=== PATIENT | female | born 1965 | race African-American/Black ===

== ENCOUNTER 2018-08-08 20:00 | Emergency (ER) | payer OTHER ==
--- OUTSIDE RECORDS SUMMARY | 2018-08-08 20:03 | XMS REPORT | Continuity of Care Document ---
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 06/26/2018 hyper [facility] p>1</sup> Medications Medication Details Route Status Patient Ordering Order Source Instructions Provider Date Saline Lock 10 mL, Soln, Inactive [facility] Flush IV Push, As 019 Indicated PRN for flush, first dose 06/24/18 14:09:00 CDT LR 1,000 mL 1,000 mL, IV, Inactive [facility] 75 mL/hr, 019 start date 06/24/18 14:09:00 CDT Misc 500 mL, Inactive [facility] Medication Soln-IV, IV, 019 Once, first dose 06/24/18 13:59:00 CDT, stop date 06/24/18 13:59:00 CDT lidocaine 5 mL, Inactive [facility] Injection, 019 IV, Once, first dose 06/24/18 13:43:00 CDT, stop date 06/24/18 13:43:00 CDT propofol 200 mg=20 mL, Inactive [facility] Emulsion, IV, 019 Once, first dose 06/24/18 13:43:00 CDT, stop date 06/24/18 13:43:00 CDT Lidocaine 2% 0.2 mL, Inactive [facility] 0.2 mL IV Injection, 019 Start Subcutaneous, [[place]] Once PRN for other (see comment), first dose 06/24/18 12:28:00 CDT LR 1,000 mL 1,000 mL, IV, Inactive [facility] 30 mL/hr, 019 start date 06/24/18 12:28:00 CDT Aspirin 81 MG 81 mg=1 tabs, Active [facility] Enteric Oral, Daily, 019 Coated Tablet heart health [Aspir-Low] sertraline 50 50 mg=1 tabs, Active [facility] mg oral Oral, Daily, 019 tablet depression Allergies, Adverse Reactions, Alerts Substance Category Reaction Severity Reaction Status Date Comments Source type Reported No Known Assertion Drug [facility] Medication allergy Allergies Immunizations Immunization Date Given Site Status Last Updated Comments Source Results Order Results Value Reference Date Interpretation Comments Source Name Range Vital Signs Vital Sign Value Date Comments Source Respitory Rate 16 06/24/2018 [facility] Systolic (mm Hg) 125 06/24/2018 [facility] Diastolic (mm Hg) 75 06/24/2018 [facility] Peripheral Pulse Rate 75 06/24/2018 [facility] Heart Rate 74 06/24/2018 [facility] Respitory Rate 14 06/24/2018 [facility] Systolic (mm Hg) 134 06/24/2018 [facility] Diastolic (mm Hg) 85 06/24/2018 [facility] Systolic (mm Hg) 137 06/24/2018 [facility] Diastolic (mm Hg) 86 06/24/2018 [facility] Respitory Rate 16 06/24/2018 [facility] Heart Rate 79 06/24/2018 [facility] Temperature Oral (F) 36.5 [place] 06/24/2018 [facility] Heart Rate 88 06/24/2018 [facility] Peripheral Pulse Rate 75 06/24/2018 [facility] Temperature Oral (F) 36.6 [place] 06/24/2018 [facility] Height 160.02 cm 06/24/2018 [facility] Weight Measured 77.1 06/24/2018 [facility] Weight Measured 77.11 06/20/2018 [facility] Height 160.02 cm 06/20/2018 [facility] Encounters Location Location Encounter Encounter Reason Attending ADM DC Status Source Details Type Number For Provider Date Date Visit [facility] Outpatient [id number] Cachorro 06/24 06/24 Active [facility] Outpatient [id number] Cachorro 06/24 06/24 [facility] Preadmit [id number] Fabricio Active [facility] Procedures Procedure Code Date Perfomer Comments Source COLONOSCOPY 06/24/2018 auto-populated [facility] FLEXIBLE; from documented DIAGNOSTIC; INCL. surgical case COLLECTION OF SPECIMENS 39527 (N/A)<sup>1</sup> Gastric [id number] 03/26/2009 spleen removed [facility] bypass<sup>2</sup> Hysterectomy [id number] 03/26/2008 [facility]
--- OUTSIDE RECORDS SUMMARY | 2018-08-08 20:03 | XMS REPORT | Summary of Care ---
:[address] [facility] Address [address] [place] [address] Encounter [facility] [id number] Date(s): 06/24/18 - 06/24/[address] [facility] [address] [place] [address]- Encounter Diagnosis Encounter for screening for malignant neoplasm of colon (Discharge Diagnosis) - 06/24/18 Discharge Disposition: Discharged to Home or Self Care Attending Physician: Cachorro Hamilton MD Admitting Physician: Cachorro Hamilton MD Vital Signs Most recent to oldest [Reference 1 2 3 Range]: Temperature Oral [35.8-37.3 36.6 DegC DegC] (06/24/18 12:25 PM) Temperature Temporal Artery 36.5 DegC [36.3-37.8 DegC] (06/24/18 2:00 PM) Temperature Temporal Fahrenheit 97.7 (06/24/18 2:00 PM) Peripheral Pulse Rate [55-105 75 bpm 75 bpm bpm] (06/24/18 2:34 PM) (06/24/18 12:25 PM) Heart Rate Monitored [60-100 74 bpm 79 bpm 88 bpm bpm] (06/24/18 2:20 PM) (06/24/18 2:10 PM) (06/24/18 2:00 PM) Respiratory Rate [12-20] 16 14 16 (06/24/18 2:34 PM) (06/24/18 2:20 PM) (06/24/18 2:10 PM) SpO2 [90-100 %] 100 % 99 % 100 % (06/24/18 2:34 PM) (06/24/18 2:20 PM) (06/24/18 2:10 PM) Blood Pressure [110-120/65-85 125/75 mmHg 134/85 mmHg 137/86 mmHg mmHg] *HI* *HI* *HI* (06/24/18 2:34 PM) (06/24/18 2:20 PM) (06/24/18 2:10 PM) Mean Arterial Pressure, Cuff 101.3 mmHg 103 mmHg 88.7 mmHg (06/24/18 2:20 PM) (06/24/18 2:10 PM) (06/24/18 2:00 PM) Activity Level - SpO2 At rest (06/24/18 2:00 PM) Height 160.02 cm 160.02 cm (06/24/18 12:25 PM) (06/20/18 2:11 PM) Height/Length Dosing 160.02 cm 160.02 cm (06/24/18 12:25 PM) (06/20/18 2:11 PM) Height Inches 63 in 63 in (06/24/18 12:25 PM) (06/20/18 2:11 PM) Weight 77.1 kg 77.11 kg (06/24/18 12:25 PM) (06/20/18 2:11 PM) Weight Dosing 77.1 kg 77.11 kg (06/24/18 12:25 PM) (06/20/18 2:11 PM) Weight Pounds 170 lb 170 lb (06/24/18 12:25 PM) (06/20/18 2:11 PM) Body Mass Index 30.11 kg/m2 30.11 kg/m2 (06/24/18 12:25 PM) (06/20/18 2:11 PM) Problem List Condition Effective Dates Status Health Status Informant Colon cancer screening(Confirmed) Active Depression(Confirmed) Active Parathyroid(Confirmed)1 Active 1hyper Allergies, Adverse Reactions, Alerts No Known Medication Allergies Medications Aspir-Low 81 mg oral delayed release tablet 81 mg=1 tabs, Oral, Daily, heart health Start Date: 06/20/18 Stop Date: 07/04/18 Status: Orderedlidocaine 5 mL, Injection, IV, Once, first dose 06/24/18 13:43:00 CDT, stop date 06/24/18 13:43:00 CDT Start Date: 06/24/18 Stop Date: 06/24/18 Status: CompletedLidocaine 2% 0.2 mL IV Start [[place]] 0.2 mL, Injection, Subcutaneous, Once PRN for other (see comment), first dose 12:28:00 CDT Start Date: 06/24/18 Stop Date: 06/24/18 Status: CompletedLR 1,000 mL 1,000 mL, IV, 30 mL/hr, start date 06/24/18 12:28:00 CDT Start Date: 06/24/18 Stop Date: 06/24/18 Status: DiscontinuedLR 1,000 mL 1,000 mL, IV, 75 mL/hr, start date 06/24/18 14:09:00 CDT Start Date: 06/24/18 Stop Date: 06/24/18 Status: DiscontinuedMisc Medication 500 mL, Soln-IV, IV, Once, first dose 06/24/18 13:59:00 CDT, stop date 06/24/18 13:59:00 CDT Start Date: 06/24/18 Stop Date: 06/24/18 Status: Completedpropofol 200 mg=20 mL, Emulsion, IV, Once, first dose 06/24/18 13:43:00 CDT, stop date 13:43:00 CDT Start Date: 06/24/18 Stop Date: 06/24/18 Status: CompletedSaline Lock Flush 10 mL, Soln, IV Push, As Indicated PRN for flush, first dose 06/24/18 14:09:00 CDT Start Date: 06/24/18 Stop Date: 06/24/18 Status: Discontinuedsertraline 50 mg oral tablet 50 mg=1 tabs, Oral, Daily, depression Start Date: 06/20/18 Stop Date: 07/04/18 Status: Ordered Results No data available for this section Immunizations No data available for this section Procedures Procedure Date Related Diagnosis Body Site Status COLONOSCOPY FLEXIBLE; DIAGNOSTIC; INCL. 06/24/18 Completed COLLECTION OF SPECIMENS 36596 (N/A)1 Gastric bypass2 03/26/09 Completed Hysterectomy 03/26/08 Completed 1auto-populated from documented surgical [id number] removed Social History Social History Type Response Assessment and Plan No data available for this section
--- OUTSIDE RECORDS SUMMARY | 2018-08-08 20:03 | XMS REPORT | Clinical Summary ---
:1965 Author Organization [facility] Address [address] [place] [address] Care Team Providers Name Role Phone Vignesh Christy MD Primary Care Provider Allergies No Known Allergies Medications Medication Sig Dispensed Refills Start Date End Date Status ferrous sulfate 324 TAKE 1 TABLET 90 tablet 0 07/08/2015 Active mg (65 mg iron) BY MOUTH tablet,delayed EVERY DAY FOR release (DR/EC) EC 90 DAYS tablet cyanocobalamin 1000 Take 1,000 0 Active MCG tablet mcg by mouth daily. PNV cmb#95-ferrous Take 1 tablet 0 Active fumarate-FA by mouth () 28 mg daily. iron- 800 mcg tablet cholecalciferol, Take 2,000 0 Active vitamin D3, Units by (cholecalciferol, mouth daily. vitamin D3,) 2,000 unit capsule capsule folic acid (FOLVITE) Take 1 mg by 0 Active 1 MG tablet mouth daily. sertraline (ZOLOFT) Take 25 mg by 0 05/02/2018 Active 25 MG tablet mouth daily. multivitamin Take 1 tablet 0 04/02/2018 Discontinued (THERAGRAN) tablet by mouth daily. azithromycin Take 2 6 tablet 0 07/22/2015 04/02/2018 Discontinued (ZITHROMAX Z-SHERLEY) tablets the 250 MG tablet first day, then 1 tablet daily for 4 days. aspirin 81 mg Chew 1 tablet 30 tablet 0 04/02/2018 05/02/2018 chewable tablet (81 mg total) daily for 30 days. Active Problems Problem Noted Date Facial numbness 04/02/2018 Depression 07/22/2015 Mediastinal mass 07/22/2015 Acute sinusitis, unspecified 07/22/2015 Dizziness 07/22/2015 Mediastinal mass 07/22/2015 Encounters Date Type Specialty Care Team Description 07/09/2018 [facility] Radiology Jeny, Encounter Fabricio Suero MD 07/09/2018 [facility] Radiology Jeny, Encounter Fabricio Suero MD 07/09/2018 [facility] Radiology Jeny, Hypercalcemia; Encounter Fbaricio Suero MD Hyperparathyroidism ([facility]) 06/21/2018 Transcribe Orders Access Jeny, Hypercalcemia (Primary Dx); Fabricio Suero MD Hyperparathyroidism ([facility]) 06/12/2018 [facility] Radiology Eric Barber Nontoxic multinodular goiter; Encounter MD Lex Hypercalcemia; Avitaminosis D; Osteomalacia 06/06/2018 Office Visit Neurology Cindy Dinero Sin Paresthesia (Primary Dx) ; DO Yamilka Copper deficiency 06/06/2018 Transcribe Orders Access Eric Barber Nontoxic multinodular goiter (Primary Dx); MD Lex Hypercalcemia; Avitaminosis D; Osteomalacia 05/27/2018 Telephone Neurology Rosette Cindy Sin [place], DO 05/27/2018 Orders Only Neurology Rosette Cindy Sin [place], DO 05/24/2018 Telephone Neurology Otilio Rodrigues MD 04/30/2018 Office Visit Neurology Keith Dineroisa Sin Paresthesia (Primary Dx) ; [place], Spasms of the hands or feet 04/27/2018 Telephone Neurology Otilio Rodrigues MD 04/08/2018 Telephone Neurology Otilio Rodrigues MD 04/05/2018 Telephone Neurology Otilio Rodrigues MD 04/01/2018 Emergency General Internal Kierra, Facial numbness (Primary Dx); - Medicine Greta Vargas, Left arm numbness; 04/02/2018 DO Depression, unspecified depression type; [place], Mediastinal mass MD Frieda after 08/07/2017 Family History Medical History Relation Name Comments Cancer Maternal Aunt breast Heart disease Mother [place] Seizures Mother Relation Name Status Comments Maternal Aunt Mother Social History Tobacco Use Types Packs/Day Years Used Date Never Smoker Alcohol Use Drinks/Week oz/Week Comments Yes occasional Sex Assigned at Date Recorded Not on file Job Start Date Occupation Industry Not on file Not on file Not on file Travel History Travel Start Travel End No recent travel history available. Last Filed Vital Signs Vital Sign Reading Time Taken Blood Pressure 126/84 06/06/2018 2:38 PM CDT Pulse 83 04/02/2018 11:10 AM [employer] Temperature 35.9 C (96.7 F) 04/02/2018 11:10 AM [employer] Respiratory Rate 18 04/02/2018 11:10 AM [employer] Oxygen Saturation 99% 04/02/2018 11:10 AM [employer] Inhaled Oxygen Concentration - - Weight 77.1 kg (170 lb) 06/06/2018 2:38 PM CDT Height 160 cm (5' 3") 06/06/2018 2:38 PM CDT Body Mass Index 30.11 06/06/2018 2:38 PM CDT Plan of Treatment Health Maintenance Due Date Last Done Comments CERVICAL CANCER SCREENING 11/03/1988 BREAST CANCER SCREENING 11/03/2017 05/07/2015 COLON CANCER SCREENING 11/03/2017 SHINGLES VACCINES (#1) 11/03/2017 INFLUENZA VACCINE 10/24/2018 Procedures Procedure Name Priority Date/Time Associated Diagnosis Comments NM PARATHYROID SCAN Routine 07/09/2018 4:00 Hypercalcemia Results for this PM CDT Hyperparathyroidism procedure are in (HCC) the results section. BONE DENSITY Routine 06/12/2018 3:45 Nontoxic Results for this PM CDT multinodular goiter procedure are in Hypercalcemia the results Avitaminosis D section. Osteomalacia ANGIOTENSIN CONVERTING Routine 04/30/2018 10:56 Paresthesia Results for this ENZYME AM [employer] procedure are in the results section. IONIZED CALCIUM Routine 04/30/2018 10:56 Paresthesia Results for this AM [employer] Spasms of the hands procedure are in or feet the results section. VIVIANA TITER Routine 04/02/2018 12:15 Results for this PM [employer] procedure are in the results section. COPPER LEVEL, SERUM Routine 04/02/2018 12:15 Results for this PM [employer] procedure are in the results section. PARATHYROID HORMONE Routine 04/02/2018 12:15 Results for this PM [employer] procedure are in the results section. VIVIANA Routine 04/02/2018 12:15 Results for this PM [employer] procedure are in the results section. SYPHILIS TREPONEMAL Routine 04/02/2018 12:15 Results for this IGG PM [employer] procedure are in the results section. RAPID HIV 1 & 2 Routine 04/02/2018 12:15 Results for this PM [employer] procedure are in the results section. HEMOGLOBIN A1C Routine 04/02/2018 12:15 Results for this PM [employer] procedure are in the results section. LIPID PANEL STAT 04/02/2018 12:15 Results for this PM [employer] procedure are in the results section. T4, FREE STAT 04/02/2018 12:15 Results for this PM [employer] procedure are in the results section. THYROID STIMULATING STAT 04/02/2018 12:15 Results for this HORMONE PM [employer] procedure are in the results section. VITAMIN B12 LEVEL STAT 04/02/2018 12:15 Results for this PM [employer] procedure are in the results section. VITAMIN B1 LEVEL, STAT 04/02/2018 12:15 Results for this WHOLE BLOOD PM [employer] procedure are in the results section. MRA NECK WO CONTRAST Routine 04/02/2018 9:28 Results for this AM [employer] procedure are in the results section. MRA [place] Routine 04/02/2018 9:26 Results for this AM [employer] procedure are in the results section. MRI BRAIN WO CONTRAST Routine 04/02/2018 9:26 Results for this AM [employer] procedure are in the results section. TROPONIN Timed 04/02/2018 6:05 Results for this AM [employer] procedure are in the results section. TROPONIN Routine 04/02/2018 3:20 Results for this AM [employer] procedure are in the results section. ECG 12-LEAD STAT 04/02/2018 12:40 Results for this AM [employer] procedure are in the results section. ESTIMATED GFR STAT 04/02/2018 12:38 Results for this AM [employer] procedure are in the results section. MAGNESIUM LEVEL STAT 04/02/2018 12:38 Results for this AM [employer] procedure are in the results section. PHOSPHORUS LEVEL STAT 04/02/2018 12:38 Results for this AM [employer] procedure are in the results section. B NATRIURETIC PEPTIDE STAT 04/02/2018 12:38 Results for this AM [employer] procedure are in the results section. TROPONIN STAT 04/02/2018 12:38 Results for this AM [employer] procedure are in the results section. LIPASE LEVEL STAT 04/02/2018 12:38 Results for this AM [employer] procedure are in the results section. COMPREHENSIVE STAT 04/02/2018 12:38 Results for this METABOLIC PANEL AM [employer] procedure are in the results section. PARTIAL THROMBOPLASTIN STAT 04/02/2018 12:38 Results for this TIME (PTT) AM [employer] procedure are in the results section. PROTHROMBIN TIME WITH STAT 04/02/2018 12:38 Results for this INR AM [employer] procedure are in the results section. HC COMPLETE BLD COUNT STAT 04/02/2018 12:38 Results for this W/AUTO DIFF AM [employer] procedure are in the results section. URINE CULTURE STAT 04/02/2018 12:38 Results for this AM [employer] procedure are in the results section. GRAM STAIN STAT 04/02/2018 12:38 Results for this AM [employer] procedure are in the results section. XR CHEST 2 VW STAT 04/02/2018 12:32 Results for this AM [employer] procedure are in the results section. URINALYSIS SCREEN AND STAT 04/02/2018 12:28 Results for this MICROSCOPY, WITH AM [employer] procedure are in REFLEX TO CULTURE the results section. CT HEAD WO CONTRAST STAT 04/02/2018 12:23 Results for this AM [employer] procedure are in the results section. ECG ED PRELIMINARY Routine 04/01/2018 11:31 Results for this INTERPRETATION PM [employer] procedure are in the results section. after 08/07/2017 Results NM Parathyroid Scan (07/09/2018 4:00 PM CDT) Narrative Performed At PROCEDURE: NM PARATHYROID SCAN [facility] INDICATION: E83.52 Hypercalcemia, E21.3 Hyperparathyroidismunspecified, E83.52E21.3 TECHNIQUE: The patient was injected with 25 mCi of Tc-99m sestamibi, IV. Immediately after injection, planar and SPECT imaging of the neck and chest was performed. Approximately three hours after inject ion, repeat planar images of the neck and chest were acquired. FINDINGS: SPECT imaging series reveals a focus of mild activity in the inferior and posterior aspect of the right thyroid lobe which does not persist on delayed imaging. Remaining imaging series reveal no persistent focal activity. Tracer distribution is otherwise physiological. IMPRESSION: 1.No definite scintigraphic evidence of a parathyroid adenoma. 2.Early phase SPECT imaging reveals a mild focus in the inferior and posterior aspect of the right thyroid lobe suggests a vascular versus reactive rashida process. [facility]-[id number] Procedure Note Interface, Radiology Results Incoming - 07/09/2018 5:04 PM CDT PROCEDURE: NM PARATHYROID SCAN INDICATION: E83.52 Hypercalcemia, E21.3 Hyperparathyroidism unspecified, E83.52 E21.3 TECHNIQUE: The patient was injected with 25 mCi of Tc-99m sestamibi, IV. Immediately after injection, planar and SPECT imaging of the neck and chest was performed. Approximately three hours after injection, repeat planar images of the neck and chest were acquired. FINDINGS: SPECT imaging series reveals a focus of mild activity in the inferior and posterior aspect of the right thyroid lobe which does not persist on delayed imaging. Remaining imaging series reveal no persistent focal activity. Tracer distribution is otherwise physiological. IMPRESSION: 1. No definite scintigraphic evidence of a parathyroid adenoma. 2. Early phase SPECT imaging reveals a mild focus in the inferior and posterior aspect of the right thyroid lobe suggests a vascular versus reactive rashida process. [facility]-[id number] Performing Organization Address City/State/Zipcode Phone Number [facility] [address] [place] [address] Bone Density (06/12/2018 3:45 PM CDT) Narrative Performed At EXAMINATION:BONE DENSITY [facility] CLINICAL HISTORY:E04.2 Nontoxic multinodular goiter, E83.52 Hypercalcemia, E04.2E83.52E55.9M83.9 COMPARISON:None. The results of this study expressed as bone mineral density (BMD) were as follows: AP spine (L1-L4) BMD: 1.264 g/cm2 T-Score: 0.6 WHO Classification:Normal Dual Femur (Total Mean): BMD: 1.050 g/cm2 T-Score:0.3 WHO Classification:Normal IMPRESSION: Bone mineral density results as described. A copy of this scan including a report detailing these results will follow. Note: The world health organization (WHO) has classified the patient's T-score as follows: Above (-1) as normal (-1) to (-2.5) as low (osteopenia) Below (-2.5) as abnormally low (osteoporosis, increased fracture risk) Dual femur FRAX: Risk factors: None. 10 year probability of fracture: 1.Major osteoporotic: 1.6% 2.Hip: 0.0% 3.Based on dual femur left neck BMD [id number] Procedure Note Interface, Radiology Results Incoming - 06/12/2018 4:16 PM CDT EXAMINATION: BONE DENSITY CLINICAL HISTORY: E04.2 Nontoxic multinodular goiter, E83.52 Hypercalcemia, E04.2 E83.52 E55.9 M83.9 COMPARISON: None. The results of this study expressed as bone mineral density (BMD) were as follows: AP spine (L1-L4) BMD: 1.264 g/cm2 T-Score: 0.6 WHO Classification: Normal Dual Femur (Total Mean): BMD: 1.050 g/cm2 T-Score: 0.3 WHO Classification: Normal IMPRESSION: Bone mineral density results as described. A copy of this scan including a report detailing these results will follow. Note: The world health organization (WHO) has classified the patient's T-score as follows: Above (-1) as normal (-1) to (-2.5) as low (osteopenia) Below (-2.5) as abnormally low (osteoporosis, increased fracture risk) Dual femur FRAX: Risk factors: None. 10 year probability of fracture: 1. Major osteoporotic: 1.6% 2. Hip: 0.0% 3. Based on dual femur left neck BMD *[id number] Performing Organization Address [facility] Phone Number [facility] [address] [place] [address] Angiotensin converting enzyme (04/30/2018 10:56 AM [employer]) Angiotensin converting enzyme 18 9 - 67 U/L [employer] Specimen Blood Resulting Agency Comment Performing Organization Information: Site ID: [id number] Name: [facility] Address: [address] [place] [address] Director: Dr. Leroy Segura Performing Organization Address [facility] Phone Number [employer] [address] [place] [address] Ionized calcium (04/30/2018 10:56 AM [employer]) Ionized calcium 5.9 (H) 4.8 - 5.6 mg/dL [facility] [employer]ARNOLDO [employer] Specimen Blood Resulting Agency Comment Performing Organization Information: Site ID: [id number] Name: [facility] Address: [address] [place] [address] Director: Dr. Leroy Segura Performing Organization Address City/State/Zipcode Phone Number [facility] [address] [place] [address] Syphilis treponemal IgG (04/02/2018 12:15 PM [employer]) Syphilis treponemal IgG Non-reactiveComment: Non-reactive [facility] Non-reactive: No HOSPITAL serological evidence of Syphilis infection Specimen Serum Performing Organization Address City/[facility]/Zipcode Phone Number [facility] DEPARTMENT OF PATHOLOGY AND [address] [place] [address] Rapid HIV 1 & 2 (04/02/2018 12:15 PM [employer]) Rapid HIV 1 and 2 Non-Reactive Non-Reactive [facility] Specimen Blood Performing Organization Address City/[facility]/Zipcode Phone Number [facility] DEPARTMENT OF PATHOLOGY [id number] [place] [address] [facility] [id number] [place] [address] Copper level, serum (04/02/2018 12:15 PM [employer]) Copper 72 (L) 80 - 155 ug/dL [facility] Comment: INTERPRETIVE INFORMATION: Copper, Serum or Plasma Serum copper may be elevated with infection, inflammation, stress, and copper supplementation. In females, elevated copper may also be caused by oral contraceptives and (concentrations may be elevated up to 3 times normal during the third trimester). Serum copper may be reduced by use of corticosteroids and zinc and by malnutrition or malabsorption. See Compliance Statement B at [email or web address] Performed by [facility], [address] [place] [id number] [email or web address], Neftali Rowland MD - Lab. Director Specimen Blood Performing Organization Address City/[facility]/Zipcode Phone Number [facility] [address] [place] [address] [facility] [address] [place] [address] VIVIANA titer (04/02/2018 12:15 PM [employer]) VIVIANA titer 1:160 (A) Not-Detected [facility] VIVIANA pattern Homogeneous (A) Not-Detected [facility] Specimen Blood Performing Organization Address [facility] Phone Number [facility] DEPARTMENT OF PATHOLOGY AND [address] [place] [address] Vitamin B1 level, whole blood (04/02/2018 12:15 PM [employer]) Vitamin B1 81 70 - 180 nmol/L [facility] Comment: INTERPRETIVE INFORMATION: Vitamin B1, Whole Blood This assay measures the concentration of thiamine diphosphate (TDP), the primary active form of vitamin B1. Approximately 90 percent of vitamin B1 present in whole blood is TDP. Thiamine and thiamine monophosphate, which comprise the remaining 10 percent, are not measured. Test developed and characteristics determined by [facility]. See Compliance Statement B: [email or web address] Performed by [facility], [address] [place] [id number] [email or web address], Neftali Rowland MD - Lab. Director Specimen Plasma specimen Performing Organization Address [facility] Hospitalcodc Phone Number [facility] [address] [place] [address] [facility] [address] [place] [address] VIVIANA (04/02/2018 12:15 PM [employer]) VIVIANA screen Positive (A) Negative [facility] Specimen Blood Performing Organization Address City/[facility]/Zipcode Phone Number [facility] DEPARTMENT OF PATHOLOGY AND [address] [place] [id number] [place] [phone] Thyroid stimulating hormone (04/02/2018 12:15 PM [employer]) TSH 0.73 0.27 - 4.20 uIU/mL [facility] Specimen Blood Performing Organization Address City/[facility]/Zipcode Phone Number [facility] DEPARTMENT OF PATHOLOGY [address] [place] [address] AND GENOMIC [facility] [id number] [place] [address] T4, free (04/02/2018 12:15 PM [employer]) T4, free 1.2 0.9 - 1.7 ng/dL [facility] Specimen Blood Performing Organization Address City/State/Zipcode Phone Number [facility] DEPARTMENT OF PATHOLOGY [address] [place] [address] Parathyroid hormone (04/02/2018 12:15 PM [employer]) PTH 134 (H) 15 - 65 pg/mL [facility] Specimen Blood Performing Organization Address City/[facility]/Zipcode Phone Number [facility] DEPARTMENT OF PATHOLOGY [address] [place] [address] Hemoglobin A1c (04/02/2018 12:15 PM [employer]) Hemoglobin A1C 5.5 4.0 - 6.0 % [facility] Comment: HOSPITAL Less than 6% - Goal of therapy for Type II Diabetes Less than 7%-Goal of therapy for Type I Diabetes Less than 8%-Acceptable control for Type I or Type II Diabetes Greater than 8%-Unacceptable control; action indicated. ([id number]) Specimen Blood Performing Organization Address City/[facility]/Zipcode Phone Number [facility] DEPARTMENT OF PATHOLOGY [address] [place] [address] Vitamin B12 level (04/02/2018 12:15 PM [employer]) Vitamin B12 >1600 (H) 211 - 946 pg/mL [facility] Comment: Significant overlap exists between normal and deficiency states. However, most patients with deficiencies will have Serum B12 <200 pg/mL. Specimen Serum Performing Organization Address City/State/Zipcode Phone Number [facility] DEPARTMENT OF PATHOLOGY AND [address] [place] [address] [address] Lipid panel (04/02/2018 12:15 PM [employer]) Cholesterol 141 0 - 199 mg/dL [facility] Triglycerides 90 0 - 149 mg/dL [facility] HDL cholesterol 59 40 - 99,999 [facility] mg/dL [facility] LDL cholesterol 76 0 - 99 mg/dL [facility] Lipid panel See below [facility] interpretation Comment: [facility] Total Cholesterol (mg/dL) <200 Desirable 020-083Wrpehcvanr-jntx >=240High Triglycerides (mg/dL) <150 Normal 031-208Snaemhucbk-lneb 200-499High >=500Very high HDL Cholesterol (mg/dL) <40Low (male) <50Low (female) LDL Cholesterol (mg/dL) <100 Optimal 100-129Near or above optimal [id number]-tfnk 160-189High >=190Very high Risk Catergories that modify LDL goals. Risk CatergoriesLDL goal (mg/dL) CHD and CHD risk equivalent<100 (10-year risk >20%) Multiple (2+) risk factors <130 (10-year risk=<20%) 0-1 risk factors <160 (<10-year risk) Defining levels of lipids in metabolic syndrome Triglycerides>=150 mg/dL HDL Cholesterol Men<40 mg/dL Women<50 mg/dL Non-HDL cholesterol is a second target for therapy in persons with high triglycerides (>=200 mg/dL) Specimen Blood Performing Organization Address City/State/Zipcode Phone Number [facility] DEPARTMENT OF PATHOLOGY [address] [place] [address] AND GENOMIC MEDICINE [facility] [address] MRA Neck Wo Contrast (04/02/2018 9:28 AM [employer]IC) Narrative Performed At EXAMINATION:MRA NECK WO CONTRAST [facility] CLINICAL HISTORY:facial numbness and left arm numbness COMPARISON:None. TECHNIQUE:Neck MRA using 2D and 3D [id number] technique with multi-planar MIP and 3D reconstruction. In addition, T1 dark blood images through the neck vasculature were obtained and reviewed. FINDINGS: There is normal flow-related signal along the bilateral common, internal, and external carotid arteries. There is no significant stenosis according to the NASCET criteria (0%). Normal variant common origin of the left carotid and brachiocephalic arteries is noted. There is normal flow-related signal along bilateral vertebral arteries. The right vertebral artery is dominant. No abnormal T1 hyperintense signal identified along the olguin to suggest blood products from dissection or intramural hematoma. IMPRESSION: No significant carotid or vertebral artery stenosis identified. [id number] Procedure Note Interface, Radiology Results 04/02/2018 9:38 AM [employer] EXAMINATION: MRA NECK WO CONTRAST CLINICAL HISTORY: facial numbness and left arm numbness COMPARISON: None. TECHNIQUE:Neck MRA using 2D and 3D kmty-[id number] technique with multi-planar MIP and 3D reconstruction. In addition, T1 dark blood images through the neck vasculature were obtained and reviewed. FINDINGS: There is normal flow-related signal along the bilateral common, internal, and external carotid arteries. There is no significant stenosis according to the NASCET criteria (0%). Normal variant common origin of the left carotid and brachiocephalic arteries is noted. There is normal flow-related signal along bilateral vertebral arteries. The right vertebral artery is dominant. No abnormal T1 hyperintense signal identified along the olguin to suggest blood products from dissection or intramural hematoma. IMPRESSION: No significant carotid or vertebral artery stenosis identified. [id number] Performing Organization Address City/State/Zipcode Phone Number [facility] [address] [place] [address] MRA [place] (04/02/2018 9:26 AM [employer]CH[employer]IC) Narrative Performed At EXAMINATION: MRA [place] [facility] CLINICAL HISTORY: facial numbness and left arm numbness COMPARISON:None TECHNIQUE: Igiv-sl-slytye MRA images of the [place] vessels were obtained with multiplanar and 3-D reconstructive algorithms. FINDINGS: The internal carotid arteries and bifurcations into the middle cerebral and anterior cerebral arteries are patent without significant stenosis. The vertebral arteries and basilar artery as well as the posterior cerebral arteries are patent with no significant stenosis.Right dominant vertebral artery. No aneurysm. IMPRESSION: No focal stenosis or aneurysm of the intracranial circulation. 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 FINDINGS: The internal carotid arteries and bifurcations into the middle cerebral and anterior cerebral arteries are patent without significant stenosis. The vertebral arteries and basilar artery as well as the posterior cerebral arteries are patent with no significant stenosis. Right dominant vertebral artery. No aneurysm. IMPRESSION: No focal stenosis or aneurysm of the intracranial circulation. [facility]-[id number] Performing Organization Address City/State/Zipcode Phone Number [facility] [address] [place] [address] MRI Brain Wo Contrast (04/02/2018 9:26 AM LIFT TRUCK MECHANIC) Narrative Performed At EXAMINATION: [facility]: facial numnbess and Left arm numnbess COMPARISON:CT head 04/02/2018. TECHNIQUE: Multiplanar and multisequence MRI imaging of the brain was obtained without contrast. FINDINGS: No T2 or T2 FLAIR signal abnormalities identified. No susceptibility identified to suggest hemosiderin deposition from prior hemorrhage. No restricted diffusion identified to indicate recent infarct. No intra or extra-axial fluid collections identified. No mass, mass effect, or midline shift is seen. The basal ganglia, thalami, midbrain, black and cervicomedullary junction are unremarkable. The ventricles and sulci are unremarkable for patient's age. Sella turcica is partially empty, nonspecific. The basal cisterns are patent. T1/T2 hyperintense probable calvarial hemangioma is noted along the occipital calvarium at the midline, image 14 of series 8. The major intracranial vascular flow voids are present. The orbital contents are symmetric and unremarkable. Moderate mucous retention cysts are noted within the maxillary sinuses bilaterally. The remaining paranasal sinuses are unremarkable. The mastoid air cells and middle ear cavities are clear. IMPRESSION: No anatomic or acute intracranial abnormality identified. [id number] Procedure Note Interface, Radiology Results Incoming - 04/02/2018 9:36 AM LIFT TRUCK MECHANIC EXAMINATION: MRI BRAIN WO CONTRAST CLINICAL HISTORY: facial numnbess and Left arm numnbess COMPARISON: CT head 04/02/2018. TECHNIQUE: Multiplanar and multisequence MRI imaging of the brain was obtained without contrast. FINDINGS: No T2 or T2 FLAIR signal abnormalities identified. No susceptibility identified to suggest hemosiderin deposition from prior hemorrhage. No restricted diffusion identified to indicate recent infarct. No intra or extra-axial fluid collections identified. No mass, mass effect, or midline shift is seen. The basal ganglia, thalami, midbrain, black and cervicomedullary junction are unremarkable. The ventricles and sulci are unremarkable for patient's age. Sella turcica is partially empty, nonspecific. The basal cisterns are patent. 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 The major intracranial vascular flow voids are present. The orbital contents are symmetric and unremarkable. Moderate mucous retention cysts are noted within the maxillary sinuses bilaterally. The remaining paranasal sinuses are unremarkable. The mastoid air cells and middle ear cavities are clear. IMPRESSION: No anatomic or acute intracranial abnormality identified. [id number] Performing Organization Address City/[facility]/Zipcode Phone Number [facility] [address] [place] [address] Troponin (04/02/2018 6:05 AM LIFT TRUCK MECHANIC)Only the most recent of3 resultswithin the time period is included. Troponin <0.30 0.00 - 0.30 ng/mL [facility] Comment: HOSPITAL 0.11 - 1.49 ng/mlMay indicate increased risk of acute coronary syndrome. >=1.5 ng/mlConsistent with acute myocardial infarction. The diagnostic value of a single normal or non-diagnostic result is questionable.Serial samples at 2-6 hour intervals are required to rule out acute myocardial injury. Specimen Plasma specimen Performing Organization Address City/[facility]/Zipcode Phone Number [facility] DEPARTMENT OF PATHOLOGY [address] [place] [address] AND GENOMIC MEDICINE [facility] [address] [place] [address] HOSPITAL ECG 12 lead (04/02/2018 12:40 AM LIFT TRUCK MECHANIC) Ventricular rate 57 [facility] Atrial rate 57 [facility] OR interval 118 [facility] QRSD interval 84 [facility] QT interval 434 [facility] QTC interval 422 [facility] P axis 1 47 [facility] QRS axis 1 21 [facility] T wave axis 31 [facility] EKG impression Sinus bradycardia-Nonspecific T wave [facility] abnormality-Abnormal ECG-No previous ECGs available- Narrative Performed At Performing Organization Address City/[facility]/Zipcode Phone Number [facility] [address] [place] [address] Estimated GFR (04/02/2018 12:38 AM LIFT TRUCK MECHANIC) Estimated GFR >=90 mL/min/1.73 m2 [facility] Comment: [facility] CatergoryUnitsInterpretation G1 >=90 Normal or high G2 60-89Mildly decreased [id number] to moderately decreased [id number] to severely decreased G4 15-29Severely decreased G5 <15Kidney failure The eGFR was calculated using the Chronic Kidney Disease Epidemiology Collaboration (CKD-EPI) equation. Interpretation is based on recommendations of the National Kidney Foundation-Kidney Disease Outcomes Quality Initiative (NKF-KDOQI) published in 2014. Specimen Plasma specimen Performing Organization Address [facility] Phone Number [facility] DEPARTMENT OF PATHOLOGY [address] [place] [address] Partial thromboplastin time, activated (04/02/2018 12:38 AM LIFT TRUCK MECHANIC) PTT 35.7 23.0 - 36.0 sec [facility] Comment: [facility] PTT therapeutic range for unfractionated heparin is 61.0-112.0 seconds which corresponds to Anti-Xa 0.3-0.7 U/ml. Specimen Blood Performing Organization Address [facility] Phone Number [facility] DEPARTMENT OF PATHOLOGY [address] [place] [address]. [place] [address] Prothrombin time with INR (04/02/2018 12:38 AM LIFT TRUCK MECHANIC) Prothrombin time 13.1 11.5 - 14.5 sec [facility] INR 1.0 [facility] Comment: [facility] The International Normalized Ratio (INR) is a therapeutic monitoring tool for patients who are stable on oral anticoagulant therapy. An INR of 2.0-3.0 is suggested for deep vein thrombosis/pulmonary embolism. Specimen Blood Performing Organization Address [facility]/Zipcode Phone Number [facility] DEPARTMENT OF PATHOLOGY [address] [place] [address] [facility] [address] [place] [address] HOSPITAL Gram stain (04/02/2018 12:38 AM LIFT TRUCK MECHANIC) Gram stain result No WBC's [facility] Many Gram positive rods Comment: Specimen Information Specimen Source: Urine Specimen Site: Clean catch Specimen Urine Performing Organization Address City/[facility]/Zipcode Phone Number [facility] DEPARTMENT OF PATHOLOGY AND [address] [place] [address] [facility] [address] [place] [address] CBC with platelet and differential (04/02/2018 12:38 AM LIFT TRUCK MECHANIC) WBC 9.8 4.5 - 11.0 k/uL [facility] RBC 4.69 4.20 - 5.50 m/uL [facility] HGB 12.7 12.0 - 16.0 g/dL [facility] HCT 39.5 37.0 - 47.0 % [facility] MCV 84.2 82.0 - 100.0 fL [facility] MCH 27.1 27.0 - 34.0 pg [facility] MCHC 32.2 31.0 - 37.0 g/dL [facility] RDW - SD 55.6 (H) 37.0 - 55.0 fL [facility] MPV 10.5 6.9 - 11.0 fL [facility] Platelet count 317 150 - 400 K/uL [facility] Nucleated RBC 0.00 /100 WBC [facility] Neutrophils 36.1 (L) 39.0 - 69.0 % [facility] Lymphocytes 50.4 (H) 25.0 - 45.0 % [facility] Monocytes 10.1 (H) 0.0 - 10.0 % [facility] Eosinophils 2.7 0.0 - 5.0 % [facility] Basophils 0.5 0.0 - 1.0 % [facility] Immature granulocytes 0.2 0.0 - 1.0 % [facility] Specimen Blood Performing Organization Address City/[facility]/Zipcode Phone Number [facility] DEPARTMENT OF PATHOLOGY [address] [place] [address] [place] [address] HOSPITAL Urine culture (04/02/2018 12:38 AM LIFT TRUCK MECHANIC) Urine culture isolate Mixed jami <=10-3 col/cc [facility] Comment: Specimen Information Specimen Source: Urine Specimen Site: Clean catch Specimen Urine Performing Organization Address City/State/Zipcode Phone Number [facility] DEPARTMENT OF PATHOLOGY AND [address] [place], [place] [address] [place] [address] Phosphorus level (04/02/2018 12:38 AM LIFT TRUCK MECHANIC) Phosphorus 3.0 2.4 - 4.5 mg/dL [facility] Specimen Plasma specimen Performing Organization Address City/[facility]/Zipcode Phone Number [facility] DEPARTMENT OF PATHOLOGY [address] [place] [address] B natriuretic peptide (04/02/2018 12:38 AM LIFT TRUCK MECHANIC) BNP 63 0 - 100 pg/mL [facility] Specimen Blood Performing Organization Address City/[facility]/Zipcode Phone Number [facility] DEPARTMENT OF PATHOLOGY [address] [place] [address] [place] [address] HOSPITAL Magnesium level (04/02/2018 12:38 AM LIFT TRUCK MECHANIC) Magnesium 2.0 1.6 - 2.6 mg/dL [facility] Specimen Plasma specimen Performing Organization Address City/[facility]/Zipcode Phone Number [facility] DEPARTMENT OF PATHOLOGY [address] [place] [address]. [place] [address] [place] [address] HOSPITAL Lipase level (04/02/2018 12:38 AM LIFT TRUCK MECHANIC) Lipase 48 13 - 60 U/L [facility] Specimen Plasma specimen Performing Organization Address City/State/Zipcode Phone Number [facility] DEPARTMENT OF PATHOLOGY [address] [place] [address]. [place] [address] [place] [address] HOSPITAL Comprehensive metabolic panel (04/02/2018 12:38 AM LIFT TRUCK MECHANIC) Sodium 141 135 - 148 mEq/L [facility] Potassium 3.8 3.5 - 5.0 mEq/L [facility] Chloride 104 98 - 112 mEq/L [facility] CO2 28 24 - 31 mEq/L [facility] Anion gap 9@ANIO 7 - 15 mEq/L [facility] BUN 9 6 - 20 mg/dL [facility] Creatinine 0.74 0.50 - 0.90 mg/dL [facility] Glucose 92 65 - 99 mg/dL [facility] Calcium 10.0 8.3 - 10.2 mg/dL [facility] Protein 7.1 6.3 - 8.3 g/dL [facility] Albumin 4.3 3.5 - 5.0 g/dL [facility] A/G ratio 1.5 0.7 - 3.8 [facility] Alkaline phosphatase 47 35 - 104 U/L [facility] AST 20 10 - 35 U/L [facility] ALT 23 5 - 50 U/L [facility] Total bilirubin 0.3 0.2 - 1.2 mg/dL [facility] Specimen Plasma specimen Performing Organization Address City/[facility]/Zipcode Phone Number [facility] DEPARTMENT OF PATHOLOGY [address] [place] [address] AND GENOMIC MEDICINE [facility] [address] XR Chest 2 Vw (04/02/2018 12:32 AM LIFT TRUCK MECHANIC) Narrative Performed At EXAMINATION: XR CHEST 2 VW [facility] CLINICAL HISTORY: sob COMPARISON:None. IMPRESSION: The lungs are clear. No pleural effusion or pneumothorax. The cardiomediastinal silhouette is normal. No acute osseous abnormalities. [facility]-[id number] Procedure Note Hm Interface, Radiology Results Incoming - 04/02/2018 12:46 AM LIFT TRUCK MECHANIC EXAMINATION: XR CHEST 2 VW CLINICAL HISTORY: sob COMPARISON: None. IMPRESSION: The lungs are clear. No pleural effusion or pneumothorax. The cardiomediastinal silhouette is normal. No acute osseous abnormalities. [facility]-[id number] Performing Organization Address City/[facility]/Zipcode Phone Number [facility] [address] [place] [address] Urinalysis screen and microscopy, with reflex to culture (04/02/2018 12:28 AM LIFT TRUCK MECHANIC) Specimen site Clean catch [facility] Color, UA Yellow [facility] Appearance, UA Clear [facility] Specific gravity, UA 1.024 1.001 - 1.030 [facility] pH, UA 5.0 5.0 - 9.0 [facility] Protein, UA Negative Negative [facility] Glucose, UA 1+ (A) Negative [facility] Ketones, UA Negative Negative [facility] Bilirubin, UA Negative Negative [facility] Blood, UA Negative Negative [facility] Nitrite, UA Negative Negative [facility] Urobilinogen, UA 2.0 (A) <2.0 E.U./dL [facility] Leukocyte esterase, UA Negative Negative [facility] Epithelial cells, UA 2 /HPF [facility] WBC, UA 1 0 - 4 /HPF [facility] RBC, UA 1 0 - 5 /HPF [facility] Bacteria, UA Moderate (A) None seen [facility] Yeast, UA None seen [facility] Yeast with pseudohyphae, UA None seen [facility] Specimen Urine Performing Organization Address City/[facility]/Zipcode Phone Number [facility] DEPARTMENT OF PATHOLOGY [address] [place] [address] AND GENOMIC MEDICINE [facility] [address] Head Wo Contrast (04/02/2018 12:23 AM LIFT TRUCK MECHANIC) Narrative Performed At EXAM: CT HEAD WO CONTRAST [facility] CLINICAL HISTORY: facial numnbess TECHNIQUE: Noncontrast enhanced images of the brain were obtained from the skull base to the vertex. Both soft tissue and bone reconstruction algorithms were performed. CT scans are performed using radiation dose reduction techniques (iterative reconstruction and/or automated exposure control). Technical factors are evaluated and adjusted to ensure appropriate moderation of exposure. Automated dose management technology is applied to adjust radiation exposure while achieving a diagnostic quality image. COMPARISON:None. FINDINGS: The patel-white matter differentiation is preserved and without evidence of acute territorial infarction. There is no evidence for acute intracranial hemorrhage, mass, mass effect, hydrocephalus, or extra-axial fluid collection. Orbits are unremarkable.Paranasal sinuses are clear.Mastoid air cells are normally pneumatized.Osseous structures are intact. IMPRESSION: No CT evidence for acute intracranial abnormality. [facility]-[id number] Procedure Note Hm Interface, Radiology Results Incoming - 04/02/2018 12:29 AM LIFT TRUCK MECHANIC EXAM: CT HEAD WO CONTRAST CLINICAL HISTORY: facial numnbess TECHNIQUE: Noncontrast enhanced images of the brain were obtained from the skull base to the vertex. Both soft tissue and bone reconstruction algorithms were performed. CT scans are performed using radiation dose reduction techniques (iterative reconstruction and/or automated exposure control). Technical factors are evaluated and adjusted to ensure appropriate moderation of exposure. Automated dose management technology is applied to adjust radiation exposure while achieving a diagnostic quality image. COMPARISON: None. FINDINGS: The patel-white matter differentiation is preserved and without evidence of acute territorial infarction. There is no evidence for acute intracranial hemorrhage, mass, mass effect, hydrocephalus, or extra-axial fluid collection. Orbits are unremarkable. Paranasal sinuses are clear. Mastoid air cells are normally pneumatized. Osseous structures are intact. IMPRESSION: No CT evidence for acute intracranial abnormality. [facility]-[id number] Performing Organization Address City/State/Zipcode Phone Number [facility] [address] [place] [address] ECG ED Preliminary Interpretation - Not an Order (04/01/2018 11:31 PM LIFT TRUCK MECHANIC) Narrative Performed At Greta Lozada DO 04/02/20184:47 AM ECG ED Preliminary Interpretation - Not an Order Performed by: Greta Lozada DO Authorized by: Greta Lozada DO ECG reviewed by ED Physician in the absence of a race car mechanic: yes Interpretation: Interpretation: abnormal Rate: ECG rate:57 ECG rate assessment: bradycardic Rhythm: Rhythm: sinus bradycardia QRS: QRS axis:Normal Comments: Sinus bradycardia with nonspecific T wave abnormality but no STEMI after 08/07/2017 Insurance Payer Benefit Plan / Group Subscriber ID Type Phone Address AETNA AETNA HMO,POS,EPO, MC/EC xxxxxxxxx HMO Advance Directives Patient has advance care planning documents on file. For more information, please contact:Deo Hightower[address] [place] [address]
[2018-08-08] MEDS ORDERED: NA CHLORIDE 0.9% 500 ML ONE (20:41)
[2018-08-08 20:50] LABS: Absolute Monocytes 1.2 K/uL (0.1-1.3); Absolute Neutrophil 6.1 K/uL (1.8-8.0); Basophils % 0.7 % (0-1.3); Eosinophils % 2.4 % (0-4.4); Hematocrit 39.7 % (36.0-45.0); Lymphocytes % 20.8 % (15.3-44.8); MPV 9.5 fL (7.6-11.3); Monocytes % 12.6 % (3.3-12.3); RBC Red Blood Cell Count 4.53 M/uL (3.86-4.86)
[2018-08-08 21:05] LABS: Potassium 4.2 mmol/L (3.5-5.1)
--- NOTE | 2018-08-08 22:10 | ER ---
Nurse's Notes [facility] Name: Katia Hernadez Age: 52 yrs Sex: Female : 1965 Arrival Date: 08/08/2018 Time: 20:05 Bed 25 Private MD: Diagnosis: Muscle spasm of calf-bilateral Presentation: 08/08 20:05 Presenting complaint: EMS states: pt C/O of pain and cramps on legs primarily on ca1 calves, feet and hands which started 30 minutes ago. VS are within normal limits and pt has a HX of hyperparathyroidism and takes Zoloft. Transition of care: patient was not received from another setting of care. Onset of symptoms was August 08, 2018. Risk Assessment: Do you want to hurt yourself or someone else? Patient reports no desire to harm self or others. Initial Sepsis Screen: Does the patient meet any 2 criteria? No. Patient's initial sepsis screen is negative. Does the patient have a suspected source of infection? No. Patient's initial sepsis screen is negative. Care prior to arrival: None. 20:05 Method Of Arrival: EMS: [facility] ca1 20:05 Acuity: CHELSEA 3 ca1 Triage Assessment: 20:10 General: Appears in no apparent distress. comfortable, Behavior is calm, cooperative, ca1 appropriate for age. Pain: Complains of pain in right leg and left leg Pain currently is 7 out of 10 on a pain scale. at worst was 10 out of 10 on a pain scale. Quality of pain is described as crampy, Pain began 30 min ago. CAMPUS RECEPTIONIST: 20:10 LMP N/A - Hysterectomy ca1 Historical: - Allergies: 20:10 No Known Allergies; ca1 - Home Meds: 20:10 Zoloft Oral [Active]; Vitamin A Oral [Active]; Vitamin D3 oral oral [Active]; folic ca1 acid Oral [Active]; Iron CR Oral [Active]; Vitamin B12 [Active]; - PMHx: 20:10 Hyperparathyroidism; ca1 - PSHx: 20:10 Gastric Bypass; Hysterectomy; ca1 - Immunization history:: Adult Immunizations up to date, Flu vaccine is up to date. - Social history:: Smoking status: Patient/guardian denies using tobacco, Patient uses alcohol, occasionally. - Ebola Screening: : No symptoms or risks identified at this time. Screenin:15 Abuse screen: Denies threats or abuse. Denies injuries from another. Nutritional ca1 screening: No deficits noted. Tuberculosis screening: No symptoms or risk factors identified. Fall Risk None identified. Assessment: 20:15 General: Appears in no apparent distress. comfortable, Behavior is calm, cooperative, ca1 appropriate for age. Pain: Complains of pain in right hand, left hand, right foot and left foot and left leg and right leg Pain currently is 7 out of 10 on a pain scale. at worst was 10 out of 10 on a pain scale. Quality of pain is described as crampy, Pain began 30 min ago. Is continuous. Neuro: Level of Consciousness is awake, alert, obeys commands, Oriented to person, place, time, situation. Cardiovascular: Heart tones S1 S2 present Capillary refill < 3 seconds Patient's skin is warm and dry. Respiratory: Airway is patent Respiratory effort is even, unlabored, Respiratory pattern is regular, symmetrical, Breath sounds are clear bilaterally. GI: No deficits noted. No signs and/or symptoms were reported involving the gastrointestinal system. : No deficits noted. No signs and/or symptoms were reported regarding the genitourinary system. EENT: No deficits noted. No signs and/or symptoms were reported regarding the EENT system. Derm: Skin is intact, is healthy with good turgor, Skin is pink, warm \T\ dry. Musculoskeletal: Circulation, motion, and sensation intact. Capillary refill < 3 seconds, Range of motion: limited in left ankle and right ankle. 21:10 Reassessment: Patient appears in no apparent distress at this time. Patient and/or ca1 family updated on plan of care and expected duration. Pain level reassessed. Patient is alert, oriented x 3, equal unlabored respirations, skin warm/dry/pink. 22:07 Reassessment: Patient appears in no apparent distress at this time. Patient is alert, ca1 oriented x 3, equal unlabored respirations, skin warm/dry/pink. Pt reports no cramps anymore but feeling sore after the leg cramps. 22:21 Reassessment: Patient appears in no apparent distress at this time. Patient is alert, ca1 oriented x 3, equal unlabored respirations, skin warm/dry/pink. Pt ambulated to restroom with steady gait. Reports no cramps as of the time. Will continue to observe a few minutes after administration of Valium. Vital Signs: 20:10 BP 154 / 86; Pulse 99; Resp 18 S; Temp 98.3; Pulse Ox 98% on R/A; Weight 77.11 kg; ca1 Height 5 ft. 2 in. (157.48 cm); Pain 7/10; 21:11 BP 139 / 86; Pulse 79; Resp 17 S; Temp 98.4(O); Pulse Ox 98% on R/A; ca1 22:10 BP 125 / 72; Pulse 89; Resp 17 S; Temp 98.1; Pulse Ox 99% on R/A; ca1 20:10 Body Mass Index 31.09 (77.11 kg, 157.48 cm) ca1 ED Course: 20:05 Patient arrived in ED. ca1 20:08 Triage completed. ca1 20:10 Arm band placed on right wrist. ca1 20:15 Patient has correct armband on for positive identification. Placed in gown. Bed in low ca1 position. Call light in reach. Side rails up X2. Pulse ox on. NIBP on. Warm blanket given. 20:16 Musa Chavarria NP is PHCP. pm1 20:16 Fernando Silverio MD is Attending Physician. pm1 20:26 Shaunna Carmichael RN is Primary Nurse. ca1 20:37 Inserted saline lock: 20 gauge in left antecubital area, using aseptic technique. ca1 ,using aseptic technique. by Viky poker manager Blood collected. 22:37 No provider procedures requiring assistance completed. IV discontinued, intact, mg2 bleeding controlled, No redness/swelling at site. Pressure dressing applied. Administered Medications: 20:37 Drug: NS 0.9% 500 ml Route: IV; Rate: bolus; Site: left antecubital; ca1 21:57 Follow up: IV Status: Completed infusion ca1 22:00 Drug: Valium 5 mg Route: PO; ca1 22:37 Follow up: Response: No adverse reaction; Marked relief of symptoms mg2 Outcome: 22:09 Discharge ordered by . pm1 22:37 Discharged to home ambulatory. mg2 22:37 Condition: stable 22:37 Discharge instructions given to patient, Instructed on discharge instructions, follow up and referral plans. medication usage, Demonstrated understanding of instructions, follow-up care, medications, Prescriptions given X 1. 22:38 Patient left the ED. mg2 Signatures: Musa Chavarria NP GEAR [employer]BER pm1 Brian Maxwell, RN RN mg2 Shaunna Carmichael, RN RN ca1
--- NOTE | 2018-08-08 22:10 | EDPHYS ---
Physician Documentation [facility] Name: Katia Hernadez Age: 52 yrs Sex: Female : 1965 Arrival Date: 08/08/2018 Time: 20:05 Bed 25 Private MD: ED Physician Fernando Silverio HPI: 08/08 21:03 This 52 yrs old Black Female presents to ER via EMS with complaints of bilateral calf pm1 cramping. 21:03 The patient presents with pain, that is acute. The complaints affect the left calf, pm1 right calf. Context: The problem was sustained at home, resulted from an unknown cause, the patient can fully bear weight, the patient is able to ambulate, Problem is a result from a previous injury: No. Onset: The symptoms/episode began/occurred 30 minutes prior to arrival. Modifying factors: The symptoms are alleviated by nothing. the symptoms are aggravated by movement. Associated signs and symptoms: Pertinent negatives fever, numbness, swelling, tingling. Treatment prior to arrival includes: no previous treatment. Severity of symptoms: in the emergency department the symptoms have improved. The patient has not recently seen a physician. Patient with cramping to bilateral hands and feet since she has had her gastric bypass. Today the patient presented to the ER because this is the first time that she had cramping to bilateral calves with cramping to her bilateral hands and feet. 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 - Social history:: Smoking status: Patient/guardian denies using tobacco, Patient uses alcohol, occasionally. - Ebola Screening: : No symptoms or risks identified at this time. ROS: 21:03 Constitutional: Negative for fever, chills, and weight loss, Eyes: Negative for injury, pm1 pain, redness, and discharge, ENT: Negative for injury, pain, and discharge, Neck: Negative for injury, pain, and swelling, Cardiovascular: Negative for chest pain, palpitations, and edema, Respiratory: Negative for shortness of breath, cough, wheezing, and pleuritic chest pain, Abdomen/GI: Negative for abdominal pain, nausea, vomiting, diarrhea, and constipation, Back: Negative for injury and pain, : Negative for injury, bleeding, discharge, and swelling. 21:03 Skin: Negative for injury, rash, and discoloration, Neuro: Negative for headache, weakness, numbness, tingling, and seizure. 21:03 MS/extremity: Positive for cramping to bilateral calves, feet, and hands, Negative for decreased range of motion, deformity. Exam: 21:03 Constitutional: This is a well developed, well nourished patient who is awake, alert, pm1 and in no acute distress. Head/Face: Normocephalic, atraumatic. Eyes: Pupils equal round and reactive to light, extra-ocular motions intact. Lids and lashes normal. Conjunctiva and sclera are non-icteric and not injected. Cornea within normal limits. Periorbital areas with no swelling, redness, or edema. ENT: Nares patent. No nasal discharge, no septal abnormalities noted. Tympanic membranes are normal and external auditory canals are clear. Oropharynx with no redness, swelling, or masses, exudates, or evidence of obstruction, uvula midline. Mucous membranes moist. Neck: Trachea midline, no thyromegaly or masses palpated, and no cervical lymphadenopathy. Supple, full range of motion without nuchal rigidity, or vertebral point tenderness. No Meningismus. Chest/axilla: Normal chest wall appearance and motion. Nontender with no deformity. No lesions are appreciated. Cardiovascular: Regular rate and rhythm with a normal S1 and S2. No gallops, murmurs, or rubs. Normal PMI, no JVD. No pulse deficits. Respiratory: Lungs have equal breath sounds bilaterally, clear to auscultation and percussion. No rales, rhonchi or wheezes noted. No increased work of breathing, no retractions or nasal flaring. Abdomen/GI: Soft, non-tender, with normal bowel sounds. No distension or tympany. No guarding or rebound. No evidence of tenderness throughout. Back: No spinal tenderness. No costovertebral tenderness. Full range of motion. Skin: Warm, dry with normal turgor. Normal color with no rashes, no lesions, and no evidence of cellulitis. MS/ Extremity: Pulses equal, no cyanosis. Neurovascular intact. Full, normal range of motion. 21:03 Musculoskeletal/extremity: DVT Exam: No signs of deep vein thrombosis. no pain, no swelling, no tenderness, negative Homans' sign noted on exam, no appreciated bluish discoloration, no erythema, no increased warmth. 21:03 Neuro: Orientation: is normal, Motor: is normal, moves all fours. Vital Signs: 20:10 BP 154 / 86; Pulse 99; Resp 18 S; Temp 98.3; Pulse Ox 98% on R/A; Weight 77.11 kg; ca1 Height 5 ft. 2 in. (157.48 cm); Pain 7/10; 21:11 BP 139 / 86; Pulse 79; Resp 17 S; Temp 98.4(O); Pulse Ox 98% on R/A; ca1 22:10 BP 125 / 72; Pulse 89; Resp 17 S; Temp 98.1; Pulse Ox 99% on R/A; ca1 20:10 Body Mass Index 31.09 (77.11 kg, 157.48 cm) ca1 MDM: 20:17 Patient medically screened. pm1 22:08 Data reviewed: vital signs. Data interpreted: Pulse oximetry: on room air is 98 %. pm1 Interpretation: normal. Counseling: I had a detailed discussion with the patient and/or guardian regarding: the historical points, exam findings, and any diagnostic results supporting the discharge/admit diagnosis, lab results, the need for outpatient follow up, to return to the emergency department if symptoms worsen or persist or if there are any questions or concerns that arise at home. 08/08 20:23 Order name: Basic Metabolic Panel; Complete Time: 21:05 pm1 08/08 20:23 Order name: CBC with Diff; Complete Time: 21:05 pm1 08/08 20:23 Order name: IV Saline Lock; Complete Time: 20:38 pm1 08/08 20:23 Order name: Labs collected and sent; Complete Time: 20:38 pm1 Administered Medications: 20:37 Drug: NS 0.9% 500 ml Route: IV; Rate: bolus; Site: left antecubital; ca1 21:57 Follow up: IV Status: Completed infusion ca1 22:00 Drug: Valium 5 mg Route: PO; ca1 22:37 Follow up: Response: No adverse reaction; Marked relief of symptoms mg2 Disposition: 08/09 07:21 Co-signature as Attending Physician, Fernando Silverio MD I agree with the assessment and hailey plan of care. Disposition: 08/08/18 22:09 Discharged to Home. Impression: Muscle spasm of calf - bilateral. - Condition is Stable. - Discharge Instructions: Muscle Cramps and Spasms, Heat Therapy. - Prescriptions for Valium 2 mg Oral Tablet - take 1 tablet by ORAL route every 8 hours As needed; 20 tablet. - Medication Reconciliation Form, Thank You Letter, Antibiotic Education, Prescription Opioid Use form. - Follow up: Emergency Department; When: As needed; Reason: Worsening of condition. Follow up: Private Physician; When: 2 - 3 days; Reason: Recheck today's complaints, Continuance of care, Re-evaluation by your physician. - Problem is new. - Symptoms have improved. Signatures: Dispatcher [employer] EDNM Fernando Silverio MD MD cha Marinas, Patrick, GLASS INSTALLER GLASS INSTALLER pm1 Brian Maxwell, JAUN RN mg2 Shaunna Carmichael RN RN ca1 Corrections: (The following items were deleted from the chart) 08/08 22:38 22:09 08/08/2018 22:09 Discharged to Home. Impression: Muscle spasm of calf - mg2 bilateral. Condition is Stable. Forms are Medication Reconciliation Form, Thank You Letter, Antibiotic Education, Prescription Opioid Use. Follow up: Emergency Department; When: As needed; Reason: Worsening of condition. Follow up: Private Physician; When: 2 - 3 days; Reason: Recheck today's complaints, Continuance of care, Re-evaluation by your physician. Problem is new. Symptoms have improved. pm1
[2018-08-08] MEDS ORDERED: DIAZEPAM 5 MG TABLET ONE (22:12)
== END 2018-08-08 22:38 | disposition home or self-care (01) ==
LOC: ER 20:00
DX: M62.831 Muscle spasm of calf (principal)
CPT/HCPCS: 36415; 80048; 85025; 96360; 99284